=== PATIENT | male | born 1960 | race Caucasian/White ===

== ENCOUNTER 2019-01-24 11:00 | Outpatient (CLI) | payer OTHER ==
--- NOTE | 2019-01-24 12:10 | RAD ---
RIGHT SHOULDER THREE VIEWS: HISTORY: Fall. Right shoulder injury. FINDINGS: Acromioclavicular and glenohumeral alignment are maintained. Mild osteophytosis of the acromioclavic ular joint. No acute fracture, dislocation, or aggressive osseous erosions. IMPRESSION: Mild osteoarthritic changes, right shoulder. POS: [facility]
== END 2019-01-24 11:01 | disposition home or self-care (01) ==
LOC: MADRAD 11:00
PROVIDERS: ATTEND Family Medicine
DX: M25.511 Pain in right shoulder (principal); M19.011 Primary osteoarthritis, right shoulder; W19.XXXA Unspecified fall, initial encounter

== ENCOUNTER 2021-04-14 09:49 | Emergency (ER) | payer OTHER, SELFPAY ==
[2021-04-14] MEDS ORDERED: Tetracaine 0.5% PF 4 ML BOT ONE (10:05)
[2021-04-14] MEDS ORDERED: Fluorescein Opthalmic Strip ONE (10:05)
== END 2021-04-14 10:45 | disposition home or self-care (01) ==
LOC: MADERS 09:49
DX: H00.031 Abscess of right upper eyelid (principal); H10.89 Other conjunctivitis; F17.210 Nicotine dependence, cigarettes, uncomplicated; E11.9 Type 2 diabetes mellitus without complications; Z79.4 Long term (current) use of insulin
CPT/HCPCS: 99283

== ENCOUNTER 2023-02-01 10:41 | Outpatient (CLI) | payer OTHER | END 2023-02-01 10:42 | disposition home or self-care (01) | LOC: MADEKG 10:41 | PROVIDERS: ATTEND Internal Medicine | DX: I10 Essential (primary) hypertension (principal) | CPT/HCPCS: 93005; 93010 ==

== ENCOUNTER 2023-12-20 12:29 | Outpatient (CLI) | payer MEDICARE, OTHER | END 2023-12-20 12:30 | disposition home or self-care (01) | LOC: MADLAB 12:29 → MADRAD 12:30 | PROVIDERS: ATTEND Internal Medicine | DX: J32.9 Chronic sinusitis, unspecified (principal); J45.50 Severe persistent asthma, uncomplicated | CPT/HCPCS: 70220; 71046 ==

== ENCOUNTER 2024-01-11 17:49 | Emergency (ER) | payer MEDICARE, OTHER | END 2024-01-11 18:52 | disposition home or self-care (01) | LOC: MADERS 17:49 | DX: J01.10 Acute frontal sinusitis, unspecified (principal); E11.9 Type 2 diabetes mellitus without complications; I10 Essential (primary) hypertension; F17.210 Nicotine dependence, cigarettes, uncomplicated | CPT/HCPCS: 99283 ==